=== PATIENT | male | born 1930 | race Caucasian/White ===

== ENCOUNTER 2018-12-09 11:21 | Emergency (ER) | payer OTHER ==
[~2018-12-09] VITALS: Ht 172.7 cm; Wt 77.3 kg
[2018-12-09 11:26] VITALS: Ht 172.7 cm; Wt 77.3 kg
[2018-12-09] MEDS ORDERED: SOD CHLORIDE 0.9% 1,000 ML IV STA (11:31)
[2018-12-09] MEDS ORDERED: ONDANSETRON 4 MG INJ IV STA (11:31)
[2018-12-09] MEDS ORDERED: TRAZ-111 PO (11:56)
[2018-12-09] MEDS ORDERED: MEMA10TA PO (11:56)
[2018-12-09] MEDS ORDERED: QUET50TA22 PO (11:57)
[2018-12-09] MEDS ORDERED: LORA0.5T PO (11:57)
[2018-12-09] MEDS ORDERED: LORA10TA3 PO (11:59)
[2018-12-09] MEDS ORDERED: CHOL100062 PO (12:00)
[2018-12-09] MEDS ORDERED: DOCU-144 PO (12:00)
[2018-12-09] MEDS ORDERED: FLUT9.9S NASAL (12:01)
[2018-12-09] MEDS ORDERED: LATA2.5D2 BOTH EYES (12:01)
[2018-12-09] MEDS ORDERED: SODIUM CHLORIDE 0.9% 1L BAG IV* STA (12:20)
[2018-12-09] MEDS ORDERED: CEFEPIME 2GM/50 ML (PMX) 50 ML IVPB STA (12:20)
[2018-12-09] MEDS ORDERED: VANCOMYCIN 1 GM (PMX) 250 ML IVPB ONE (12:30)
--- NOTE | 2018-12-09 13:24 | ERD ---
ER Documentation Chief Complaint Chief Complaint nausea & vomiting HPI 88-year-old male history of chronic encephalopathy who presents with nausea and vomiting. No family available. The patient has chronic encephalopathy. It appears he is normally walking around but now less responsive. There is report of nausea and vomiting at home. Her main of HPI is exquisitely limited. ROS All systems reviewed and are negative except as per history of present illness. Medications Home Meds Reported Medications Latanoprost (Latanoprost) 2.5 Ml Drops, 1 DROP BOTH EYES QHS, #1 BOTTLE 12/09/18 Fluticasone Propionate (Flonase Allergy Relief) 9.9 Ml [place].susp, 1 SPRAY NASAL DAILY PRN for ALLERGIC REACTION, #1 BOTTLE TO EACH NOSTRIL 12/09/18 Cholecalciferol* (Vitamin D3*) 1,000 Unit Tablet, 2000 UNIT PO DAILY, TAB 12/09/18 Docusate Sodium* (Colace*) 100 Mg Capsule, 100 MG PO BID PRN for CONSTIPATION, #60 CAP 12/09/18 Loratadine* (Loratadine*) 10 Mg Tablet, 10 MG PO DAILY, #30 TAB 12/09/18 Lorazepam* (Lorazepam*) 0.5 Mg Tablet, 0.5 MG PO HS PRN for ANXIETY, TAB 12/09/18 Quetiapine Fumarate* (Quetiapine Fumarate*) 50 Mg Tablet, 50 MG PO HS, TAB 12/09/18 Trazodone Hcl* (Trazodone Hcl*) 50 Mg Tablet, 50 MG PO QHS, #30 TAB 12/09/18 Memantine* (Namenda*) 10 Mg Tablet, 10 MG PO DAILY, #30 TAB 12/09/18 Allergies Allergies: Coded Allergies: No Known Allergy (Unverified , 12/09/18) PMhx/Soc Hx Psychiatric Problems: Yes (Dementia) Hx Alcohol Use: No Hx Substance Use: No Hx Tobacco Use: No Smoking Status: Never smoker FmHx Family History: No diabetes Physical Exam Vitals Vital Signs Date Temp Pulse Resp B/P (MAP) Pulse Ox O2 O2 Flow FiO2 Time Delivery Rate 12/09/18 98.7 92 20 158/90 100 Nasal 2.0 13:07 (112) Cannula 12/09/18 Nasal 2 12:20 Cannula 12/09/18 98.1 96 24 146/68 98 11:26 (94) Physical Exam General: Elderly male, disheveled, protecting airway Head: Normocephalic, atraumatic. Eyes: Pupils equally reactive, EOM intact ENT: Moist mucous membranes Neck: Supple, no lymphadenopathy Respiratory: Lungs clear bilaterally, no distress Cardiovascular: RRR, no murmurs, rubs, or gallops Abdominal: Soft, no focal tenderness but limited exam : Deferred MSK: No edema, no unilateral swelling, 5/5 strength Neurologic: Limited exam but moving all extremities Skin: No rash Psych: Normal mood Result Diagram: 12/09/18 1155 12/09/18 1155 Results 24 hrs Laboratory Tests Test 12/09/18 11:55 12/09/18 12:08 12/09/18 12:18 White Blood Count 20.4 10^3/ul Red Blood Count 5.06 10^6/ul Hemoglobin 15.6 g/dl Hematocrit 47.4 % Mean Corpuscular Volume 93.7 fl Mean Corpuscular Hemoglobin 30.8 pg Mean Corpuscular 32.9 g/dl Hemoglobin Concent Red Cell Distribution Width 13.3 % Platelet Count 197 10^3/UL Mean Platelet Volume 11.6 fl Immature Granulocytes % 0.500 % Neutrophils % 90.4 % Lymphocytes % 3.6 % Monocytes % 5.4 % Eosinophils % 0.0 % Basophils % 0.1 % Nucleated Red Blood Cells % 0.0 /100WBC Immature Granulocytes # 0.100 10^3/ul Neutrophils # 18.4 10^3/ul Lymphocytes # 0.7 10^3/ul Monocytes # 1.1 10^3/ul Eosinophils # 0.0 10^3/ul Basophils # 0.0 10^3/ul Nucleated Red Blood Cells # 0.0 10^3/ul Prothrombin Time 13.4 Sec Prothrombin Time Ratio 1.0 INR International Normalized Ratio 1.01 Activated Partial Thromboplast 29.7 Sec Time Sodium Level 143 mmol/L Potassium Level 3.8 mmol/L Chloride Level 97 mmol/L Carbon Dioxide Level 32 mmol/L Anion Gap 14 Blood Urea Nitrogen 21 mg/dl Creatinine 1.06 mg/dl Est Glomerular Filtrat Rate mL/min mL/min Glucose Level 165 mg/dl Calcium Level 9.3 mg/dl Total Bilirubin 0.5 mg/dl Direct Bilirubin 0.00 mg/dl Indirect Bilirubin 0.5 mg/dl Aspartate Amino Transf (AST/SGOT) 27 IU/L Alanine 28 IU/L Aminotransferase (ALT/SGPT) Alkaline Phosphatase 57 IU/L Troponin I < 0.012 ng/ml Total Protein 7.6 g/dl Albumin 4.3 g/dl Globulin 3.30 g/dl Albumin/Globulin Ratio 1.30 POC Venous Lactate 3.0 mmol/L Bedside Glucose 148 mg/dL Current Medications Medications Dose Sig/Adam Start Time Status Last (Trade) Ordered Route PRN Stop Time Admin Dose Reason Admin Sodium 1,000 ml @ Q1H STAT 12/09/18 DC 12/09/18 Chloride 1,000 mls/hr IV 11:31 12:06 12/09/18 12:30 Ondansetron 4 mg ONCE STAT 12/09/18 DC 12/09/18 HCl (Zofran IV 11:31 12:06 Inj) 12/09/18 11:32 Sodium 1,320 ml BOLUS OVER 2 12/09/18 DC 12/09/18 Chloride HOURS STAT 12:20 12:44 (NS) IV* 12/09/18 12:22 Cefepime HCl 50 ml @ ONCE STAT 12/09/18 DC 12/09/18 100 mls/hr IVPB 12:20 12:44 12/09/18 12:49 Vancomycin 250 ml @ ONCE ONCE 12/09/18 12/09/18 HCl 125 mls/hr IVPB 12:30 13:04 12/09/18 14:29 Procedures/MDM EKG, MONITORS, & DIAGNOSTIC IMAGING: EKG: I reviewed and interpreted a 12-lead EKG. Rhythm: Normal sinus rhythm ST Changes: No contiguous ST segment elevations T waves: No contiguous T wave inversions Impression: No evidence of acute cardiac ischemia Chest x-ray: IMPRESSION: Left basilar infiltrate concerning for developing pneumonia. RPTAT: [facility] CT abdomen and pelvis: IMPRESSION: 1. Mild thickening of the cunningham of the proximal sigmoid colon with extensive diverticuli, suggestive of a mild diverticulitis. No evidence of perforation or focal fluid collections. 2. Stool filled loops of large bowel suggestive of constipation. No gross evidence of bowel obstruction. 3. Mild thickening of the cunningham of the distal esophagus with adjacent fatty stranding and fluid. Cannot exclude esophagitis. Consider follow-up upper GI endoscopy, if clinically indicated. 4. Status post cholecystectomy. 5. Atherosclerotic disease aorta. 6. Fat-containing bilateral inguinal hernias. 7. No evidence of free fluid or free air. No gross focal fluid collections. 8. Left lower lobe air space disease and small left pleural effusion. Mild right-sided pleural effusion. RPTAT: [facility] brain IMPRESSION: 1. No acute intracranial hemorrhage or acute territorial infarct. 2. Age related atrophy and mild small vessel ischemic change. 3. Ventricles are prominent greater than expected for the degree of atrophy. This raises the possibility of communicating hydrocephalus. Recommend clinical correlation. 4. Mild sinus disease as described RPTAT: LAB INTERPRETATION: * CBC reveals significant leukocytosis * Venous lactate of 3.0, negative troponin MEDICAL DECISION MAKING: The patient presents with altered mental status, nausea and vomiting. Broad differential exists including sepsis, intracranial hemorrhage, acute intra- abdominal process. Viral process. The patient is minimally verbal at this time possibly consistent with baseline though acute encephalopathy has been reported via EMS. No family available at this time. ER COURSE: * Sepsis screening has revealed evidence of severe sepsis. 30 cc/kg bolus of saline provided. Empiric antibiotics in the form of vancomycin and cefepime after blood cultures provided. * Source consistent with possible pneumonia and diverticulitis * the patient is currently protecting his airway and does not require intubation. Blood pressure remained stable no indication for central line * The patient is a [employer] member and I believe stable for transfer for definitive management of severe sepsis. CONSULTATION: None DISPOSITION PLAN: Transfer to [facility] Accepting care team and consultations: I discussed the current laboratory data, diagnostic imaging and emergency care provided. Admitting team: [facility] physician Dr. Vazquez Admitting team indication: Insurance directed Sepsis Documentation: Patient's infectious symptoms have not stabilized and the patient is at risk of rapid decompensation. The patient will be admitted for careful hydration, antibiotic therapy, and infectious source control. SEVERE SEPSIS CRITERIA: Infectious source: Diverticulitis, pneumonia End organ damage indicated by: [Lactate > 2.0 mmol/L SEPSIS MANAGEMENT Time of recognition of sepsis: 12:08 PM Time of recognition of severe sepsis: 12:08 PM Time of recognition of septic shock: No septic shock at this time. 3 HOUR BUNDLE Blood cultures x 2 before broad-spectrum antibiotics: Yes 30 ml/kg NS bolus completed Initial lactate 3.0 Repeat lactate pending repeat SEPTIC SHOCK ASSESSMENT: No lactic acid > 4.0 No persistent hypotension (SBP < 90 or 40 mmHg drop, MAP < 65) despite 30 mL/kg IV fluid bolus VOLUME REASSESSMENT FOR SEPTIC SHOCK: The patient does not meet criteria for septic shock in the emergency department at this time PERSISTENT HYPOTENSION TREATMENT: Comfort care no Central line not Required Vasopressor started not required I considered further perfusion assessment with CVP measurement, SCVO2, bedside ultrasound volume assessment, passive leg raise, trial of further fluid bolus. And proceeded with 30 ml/kg fluid bolus of NSS, broad spectrum antibiotics, and admission. CRITICAL CARE Critical care time 35 minutes Emergent fluid management while maintaining close respiratory support. Provision of immediate and broad-spectrum antibiotic therapy. Simultaneous assessment for possible sources in order to direct targeted therapy. Consideration for invasive and chemical support to prevent cardiopulmonary collapse. Critical care time is independent of procedures performed. Departure Diagnosis: Primary Impression: Acute diverticulitis Additional Impressions: Left lower lobe pneumonia Pneumonia type: due to unspecified organism Qualified Codes: J18.1 - Lobar pneumonia, unspecified organism Severe sepsis Encephalopathy chronic Condition: YESICA Quinn MD Dec 09, 2018 13:24
[2018-12-09 16:11] VITALS: BP 161/84; PULSE 89; RESP 20
== END 2018-12-09 16:12 | disposition short-term general hospital (02) ==
LOC: EDBD 11:21 → E/R 11:21
DX: K57.20 Diverticulitis of large intestine with perforation and abscess without bleeding (principal); J18.1 Lobar pneumonia, unspecified organism; A41.9 Sepsis, unspecified organism; R65.20 Severe sepsis without septic shock; G93.40 Encephalopathy, unspecified; R41.82 Altered mental status, unspecified
CPT/HCPCS: 36415; 70450; 71045; 74176; 80053; 82962; 83605; 84484; 85025; 85610; 85730; 87040; 93005; 96374; 96375; 99291; J0692; J2405; J3370; J7030